=== PATIENT | female | born 1985 | race Caucasian/White ===

== ENCOUNTER 2017-03-16 08:36 | Inpatient (IN) | payer OTHER ==
[~2017-03-16] VITALS: Ht 154.9 cm; Wt 68.9 kg
[~2017-03-16 08:36] MED LIST: CLINDAMYCIN HY300 MG PO; KEFLEX500 MG PO; NORCO 325 MG-51 TAB PO; ZOVIRAX400 MG PO
[2017-03-16 09:34] LABS: ABSOLUTE BASOPHIL COUNT 0.1 /CUMM (0.0-0.2); ABSOLUTE EOSINOPHIL COUNT 0.1 /CUMM (0.0-0.7); ABSOLUTE GRANULOCYTE CT 8.2 /CUMM (1.4-6.5); ABSOLUTE LYMPH COUNT 1.5 /CUMM (1.2-3.4); ABSOLUTE MONOCYTE COUNT 0.6 /CUMM (0.10-0.60); BASOPHIL % 0.5 % (0.0-2.0); EOSINOPHIL % 1.1 % (0-5); HEMATOCRIT 37.3 % (37-47); MEAN CORPUSCULAR HGB 33.8 PG (27.0-31.0); MEAN CORPUSCULAR HGB CONC 34.3 G/DL (33.0-37.0); MEAN CORPUSCULAR VOLUME 98.4 FL (81.0-99.0); MEAN PLATELET VOLUME 10.4 FL (7.4-10.4); PLATELET COUNT 181 /CUMM (130-400); RED BLOOD CELL CT 3.79 /CUMM (4.20-5.40); WHITE BLOOD CELL COUNT 10.5 /CUMM (4.8-10.8)
[2017-03-16 09:35] LABS: GRANULOCYTE % 77.8 % (42.2-75.2)
--- NOTE | 2017-03-16 13:15 | PN- Obstetrical ---
Subjective Subjective: C/O PAIN Objective Last 24 Hrs of Vital Signs/I&O Intake & Output 03/16 1600 05/ 0800 05 0000 Intake Total Output Total Balance Patient 152 lb Weight Physical Exam: ABD SOFT [id number] Obstetric Exam Dilation (cm): 4 Effacement (%): 80 Station: 0 Membranes: AROM Fluid: clear Multiple Gestation? No Contractions: Q 2-3 MINUTES Assessment/Plan Assessment/Plan ASSESS TERM INDUCTION PLAN CONT PITOCIN
--- NOTE | 2017-03-16 15:50 | Labor & Delivery Summary ---
Delivery Summary Vaginal Delivery: Vaginal: vertex Episiotomy/Lacerations: Episiotomy/Lacerations: none Placenta: Placenta: spontanteous, normal, 3 vessel, nuchal cord (x_), CANX1 (REDUCIBLE) Anesthesia: block Baby's Weight: 5 5 Additional Comments: WITH MECONIUM NOTED AFTER DELIVERY ON TOWEL OVER INTACT PERINEUM
[2017-03-17] MEDS ORDERED: IBUPROFEN800 M1 PO (08:51)
--- NOTE | 2017-03-17 08:56 | PN- Post Delivery/GYN ---
Subjective Subjective: WANTS TO GO HOME Objective Last 24 Hrs of Vital Signs/I&O PER CHART Physical Exam: VSS ABD SOFT NT FUNDUS FIRM NT LOCHIA MINIMAL EXT -EDEMA -HOMAQNS Assessment/Plan Assessment/Plan ASSESS S/P PLAN CONT PPC
[2017-03-17 09:49] LABS: ABSOLUTE BASOPHIL COUNT 0 /CUMM (0.0-0.2); ABSOLUTE EOSINOPHIL COUNT 0.2 /CUMM (0.0-0.7); ABSOLUTE GRANULOCYTE CT 10.5 /CUMM (1.4-6.5); ABSOLUTE LYMPH COUNT 1.6 /CUMM (1.2-3.4); ABSOLUTE MONOCYTE COUNT 0.7 /CUMM (0.10-0.60); BASOPHIL % 0.1 % (0.0-2.0); EOSINOPHIL % 1.4 % (0-5); GRANULOCYTE % 80.9 % (42.2-75.2); HEMATOCRIT 36.6 % (37-47); MEAN CORPUSCULAR HGB 33.1 PG (27.0-31.0); MEAN CORPUSCULAR HGB CONC 32.9 G/DL (33.0-37.0); MEAN CORPUSCULAR VOLUME 100.6 FL (81.0-99.0); MEAN PLATELET VOLUME 10.4 FL (7.4-10.4); PLATELET COUNT 166 /CUMM (130-400); RBC DISTRIBUTION WIDTH 14.2 % (11.5-14.5); RED BLOOD CELL CT 3.64 /CUMM (4.20-5.40)
== END 2017-03-17 17:25 | DRG 560 ==
LOC: GNO 08:36
PROVIDERS: ADMIT Specialist
PROC: 10E0XZZ Delivery of Products of Conception, External Approach (ICD-10-PCS; principal; 2017-03-16)
PROC: 3E033VJ Introduction of Other Hormone into Peripheral Vein, Percutaneous Approach (ICD-10-PCS; 2017-03-16)
DX: O69.81X0 Labor and delivery complicated by cord around neck, without compression, not applicable or unspecified (principal); Z3A.39 39 weeks gestation of pregnancy; Z37.0 Single live birth
CPT/HCPCS: GNOS; 81003; 87086; 88307; J7120

== ENCOUNTER 2017-04-10 03:28 | Emergency (ER) | payer OTHER ==
[~2017-04-10 03:28] MED LIST changes: +IBUPROFEN800 M1 PO
--- NOTE | 2017-04-10 03:33 | ED GI/GU/ABDOMINAL COMPLAINT ---
History of Present Illness General Chief Complaint: Abdominal Pain/Flank Pain Stated Complaint: LEFT SIDED ABD PAIN, X 2 HRS Source: patient Exam Limitations: clinical condition Vital Signs & Intake/Output Vital Signs & Intake/Output Vital Signs Date Time Temp Pulse Resp B/P B/P Pulse O2 O2 Flow FiO2 Mean Ox Delivery Rate 04/10 0355 96.1 74 22 124/71 95 Room Air Allergies Coded Allergies: shellfish derived (Severe, HIVES 04/10/17) Reconcile Medications Tramadol HCl (Ultram) 50 MG TABLET 1 TAB PO Q12P PRN FLANK PAIN Triage Nurses Notes Reviewed? yes ? N Is pt currently ? No Onset: Abrupt Duration: hour(s): (1) Timing: single episode today Quality/Severity: sharpness, severe Location: left flank Radiation: no radiation Activities at Onset: rest No Modifying Factors: none Associated Symptoms: abdominal pain, nausea/vomiting HPI: 31 year old female presents with left flank pain that started abruptly before arrival. Positive vomiting in triage. Reports pain feels similar to previous kidney stone. She is status post vaginal delivery 3 weeks ago. Past History Travel History Traveled to [place] past 21 day No Medical History Any Pertinent Medical History? see below for history Renal: nephrolithiasis Surgical History Surgical History: non-contributory Psychosocial History What is your primary language Lithuanian Daily Tobacco Use Amount/Type: => 5 Cigarettes daily ETOH Use: denies use Illicit Drug Use: denies illicit drug use Family History Hx Contributory? No Review of Systems Review of Systems Constitutional: Denies: chills, fever. EENTM: Reports: no symptoms. Respiratory: Denies: cough, short of breath. Cardiovascular: Denies: chest pain, palpitations. GI: Reports: abdominal pain, nausea, vomiting. Genitourinary: Reports: no symptoms. Musculoskeletal: Reports: no symptoms. Skin: Reports: no symptoms. Neurological/Psychological: Reports: no symptoms. Hematologic/Endocrine: Denies: bruising, bleeding, polyuria, polydipsia. Immunologic/Allergic: Denies: splenectomy. All Other Systems: Reviewed and Negative Physical Exam Physical Exam General Appearance: well developed/nourished, alert, awake, anxious Head: atraumatic, normal appearance Eyes: Bilateral: normal appearance, PERRL, EOMI. Ears, Nose, Throat, Mouth: hearing grossly normal, moist mucous membrane Neck: normal inspection, supple, full range of motion Respiratory: normal breath sounds, chest non-tender, no respiratory distress Cardiovascular: regular rate/rhythm Peripheral Pulses: 2+ radial (R), 2+ radial (L) Gastrointestinal: normal bowel sounds, soft, tenderness (LEFT FLANK) Back: CVA tenderness (L) Extremities: normal range of motion Neurologic/Psych: no motor/sensory deficits, awake, alert, oriented x 3 Skin: intact, normal color Core Measures ACS in differential dx? No Severe Sepsis Present: No Septic Shock Present: No Progress Differential Diagnosis: ectopic , kidney stone, ovarian cyst, ovarian torsion, UTI/pyelo Plan of Care: Orders Procedure Date/time Status Straight Cath 04/10 440 Active LIPASE 04/10 336 Complete HUMAN BETA HCG SCREEN 04/10 336 Complete COMPREHENSIVE METABOLIC PANEL 04/10 336 Complete CBC WITHOUT DIFFERENTIAL 04/10 336 Complete URINALYSIS 04/10 331 Complete Laboratory Tests 04/10/17 0436: Urinalysis LIGHT H, Urine Color YEL, Urine Clarity CLDY H, Urine pH 7.5, Ur Specific [place] 1.015, Urine Protein 30 H, Urine Ketones NEG, Urine Nitrite NEG, Urine Bilirubin NEG, Urine Urobilinogen 1.0, Ur Leukocyte Esterase NEG, Ur Microscopic SEDIMENT EXAMINED, Urine RBC 15-25 H, Urine WBC 1-3 H, Ur Epithelial Cells RARE, Urine Mucus MANY H, Urine Hemoglobin LARGE H, Urine Glucose NEG 04/10/17 0342: Anion Gap 8, Estimated GFR > 60, BUN/Creatinine Ratio 21.7, Glucose 106 H, Calcium 8.7, Total Bilirubin 0.4, AST 21, ALT 35, Alkaline Phosphatase 90, Total Protein 6.3, Albumin 4.0, Globulin 2.3, Albumin/Globulin Ratio 1.7, Lipase 308 H, Total Beta HCG NEGATIVE, CBC w Diff NO MAN DIFF REQ, RBC 4.24, MCV 100.1 H, MCH 33.2 H, RDW 14.0, MPV 9.3, Gran % 64.0, Lymphocytes % 23.5, Monocytes % 6.4 , Eosinophils % 5.0, Basophils % 1.1, Absolute Granulocytes 6.6 H, Absolute Lymphocytes 2.4, Absolute Monocytes 0.7 H, Absolute Eosinophils 0.5, Absolute Basophils 0.1, PUBS MCHC 33.2 5:52 AM Patient much improved after IV Dilaudid. No initial relief with IV Toradol and morphine. Results of CT scan discussed with the patient and grandmother at bedside. Prescription sent to [facility] in [place]. (LES TOMLINSON,YURI) Diagnostic Imaging: Viewed by Me: CT Scan. Discussed w/RAD: CT Scan. Radiology Impression: PATIENT: OPAL IVERSON PRESENT AGE: 31 PATIENT ACCOUNT NO: [id number] : 85 LOCATION: [facility] ORDERING PHYSICIAN: YURI SALDANA MD SERVICE DATE: 04/10/17 EXAM TYPE: CAT - CT ABD & PELVIS W/O IV CONTRAS EXAMINATION: CT ABDOMEN AND PELVIS WITHOUT CONTRAST CLINICAL INFORMATION: Severe left flank pain and hematuria COMPARISON: 02/17/2012 TECHNIQUE: Multidetector volumetric imaging was performed from the superior aspect of the liver through the pubic symphysis. Sagittal and coronal reformatted images were obtained on the technologist's workstation. DLP: 265 mGy -cm FINDINGS: LUNG BASES: The visualized lung bases are unremarkable. LIVER, GALLBLADDER, AND BILIARY TREE: The liver is normal in size, shape, and attenuation. No focal hepatic lesion or biliary ductal dilatation is present. The gallbladder is unremarkable with no evidence of radiopaque gallstones, gallbladder wall thickening, or obvious pericholecystic inflammatory changes. PANCREAS: Unremarkable. SPLEEN: Unremarkable. ADRENAL GLANDS: Unremarkable. KIDNEYS AND URETERS: The kidneys are normal in size, shape, and attenuation. There is mild left hydroureteronephrosis. There is a 0.4 cm calculus at the left ureterovesicular junction. No additional calculi. No right-sided hydronephrosis. BLADDER: Unremarkable. GASTROINTESTINAL TRACT: The stomach and small bowel are unremarkable. No dilated loops of bowel or evidence of obstruction. No colonic wall thickening or inflammatory change. Normal appendix. ABDOMINAL WALL: No significant hernia is appreciated. LYMPH NODES: Normal. VASCULAR: Unremarkable. PELVIC VISCERA: The uterus and adnexa are unremarkable. OSSEOUS STRUCTURES: Unremarkable. IMPRESSION: Mild left hydroureteronephrosis with a 0.4 cm calculus at the ureterovesicular junction. DICTATED BY: NADIRA TOMLINSON,JAYCEE DATE/TIME DICTATED:04/10/17522 [employer]:OMAR DATE/TIME TRANSCRIBED:522 CONFIDENTIAL, DO NOT COPY WITHOUT APPROPRIATE AUTHORIZATION. < Electronically signed in Other Vendor System> SIGNED BY: NADIRA TOMLINSON, JAYCEE 04/10/17 0530 Initial ED EKG: none Departure Departure Time of Disposition: 0550 Disposition: HOME OR SELF CARE Condition: Stable Clinical Impression Primary Impression: Renal colic on left side Referrals: CHARLEY RASMUSSEN MD Additional Instructions: Take the Flomax, ibuprofen, Zofran and Percocet as directed. Please drink plenty of fluids. Follow-up with the urologist listed. Strain your urine as directed. Return as needed. Departure Forms: Customer Survey General Discharge Information Take the Flomax, ibuprofen, Zofran and Percocet as directed. Please drink plenty of fluids. Follow-up with the urologist listed. Strain your urine as directed. Return as needed. Departure Forms: Customer Survey General Discharge Information Prescriptions: Current Visit Scripts Ondansetron (Zofran Odt) 1 TAB PO Q6 PRN NAUSEA #10 TAB Ibuprofen 1 TAB PO TID PRN PAIN #20 TAB Tamsulosin HCl (Flomax) 1 CAP PO DAILY #14 CAP Oxycodone HCl/Acetaminophen (Percocet 5-325 MG Tablet) 1 TAB PO BID #12 TAB
[2017-04-10 03:55] LABS: MEAN CORPUSCULAR HGB 33.2 PG (27.0-31.0)
[2017-04-10 03:58] LABS: ABSOLUTE BASOPHIL COUNT 0.1 /CUMM (0.0-0.2); ABSOLUTE EOSINOPHIL COUNT 0.5 /CUMM (0.0-0.7); ABSOLUTE GRANULOCYTE CT 6.6 /CUMM (1.4-6.5); ABSOLUTE LYMPH COUNT 2.4 /CUMM (1.2-3.4); ABSOLUTE MONOCYTE COUNT 0.7 /CUMM (0.10-0.60); BASOPHIL % 1.1 % (0.0-2.0); HEMATOCRIT 42.4 % (37-47); MEAN CORPUSCULAR HGB CONC 33.2 G/DL (33.0-37.0); MEAN CORPUSCULAR VOLUME 100.1 FL (81.0-99.0); MEAN PLATELET VOLUME 9.3 FL (7.4-10.4); PLATELET COUNT 212 /CUMM (130-400); RED BLOOD CELL CT 4.24 /CUMM (4.20-5.40); WHITE BLOOD CELL COUNT 10.3 /CUMM (4.8-10.8)
--- NOTE | 2017-04-10 05:30 | CT SCAN REPORT ---
EXAMINATION: CT ABDOMEN AND PELVIS WITHOUT CONTRAST CLINICAL INFORMATION: Severe left flank pain and hematuria COMPARISON: 02/17/2012 TECHNIQUE: Multidetector volumetric imaging was performed from the superior aspect of the liver through the pubic symphysis. Sagittal and coronal reformatted images were obtained on the technologist's workstation. DLP: 265 mGy-cm FINDINGS: LUNG BASES: The visualized lung bases are unremarkable. LIVER, GALLBLADDER, AND BILIARY TREE: The liver is normal in size, shape, and attenuation. No focal hepatic lesion or biliary ductal dilatation is present. The gallbladder is unremarkable with no evidence of radiopaque gallstones, gallbladder wall thickening, or obvious pericholecystic inflammatory changes. PANCREAS: Unremarkable. SPLEEN: Unremarkable. ADRENAL GLANDS: Unremarkable. KIDNEYS AND URETERS: The kidneys are normal in size, shape, and attenuation. There is mild left hydroureteronephrosis. There is a 0.4 cm calculus at the left ureterovesicular junction. No additional calculi. No right-sided hydronephrosis. BLADDER: Unremarkable. GASTROINTESTINAL TRACT: The stomach and small bowel are unremarkable. No dilated loops of bowel or evidence of obstruction. No colonic wall thickening or inflammatory change. Normal appendix. ABDOMINAL WALL: No significant hernia is appreciated. LYMPH NODES: Normal. VASCULAR: Unremarkable. PELVIC VISCERA: The uterus and adnexa are unremarkable. OSSEOUS STRUCTURES: Unremarkable. IMPRESSION: Mild left hydroureteronephrosis with a 0.4 cm calculus at the ureterovesicular junction.
[2017-04-10] MEDS ORDERED: FLOMAX0.4 M1 PO (05:51)
[2017-04-10] MEDS ORDERED: ZOFRAN ODT4 M1 PO (05:51)
[2017-04-10] MEDS ORDERED: PERCOCET 5-3251 EACH PO (05:51)
[2017-04-10] MEDS ORDERED: IBUPROFEN800 M1 PO (05:51)
[2017-04-10 05:59] VITALS: BP 122/76
[2017-04-11] MEDS ORDERED: ULTRAM50 M1 PO (11:56)
== END 2017-04-10 06:00 ==
LOC: ERH 03:28
PROVIDERS: Emergency Medicine
DX: N23 Unspecified renal colic (principal)
CPT/HCPCS: 74176; 81001; 81025; 96361; 96374; 96375; J1885; J2405

== ENCOUNTER 2017-04-10 15:06 | Observation (INO) | payer OTHER ==
[~2017-04-10] VITALS: Ht 152.4 cm; Wt 59.0 kg
[~2017-04-10 15:06] MED LIST changes: +FLOMAX0.4 M1 PO; +PERCOCET 5-3251 EACH PO; +ZOFRAN ODT4 M1 PO
--- NOTE | 2017-04-10 15:14 | NUR ---
PT BIBA FROM HOME C/C L FLANK PAIN, DIAGNOSED WITH KIDNEY STONES LAST NIGHT, D/C'D FROM [facility] ED AT 03:00. TOOK OXYCODONE 13:00 WITH NO RELIEF NOTED. ALSO REPORTS A LITTLE BIT OF NAUSEA.
--- NOTE | 2017-04-10 15:14 | NUR ---
Informed waiting has been performed.
--- NOTE | 2017-04-10 15:30 | ED GI/GU/ABDOMINAL COMPLAINT ---
History of Present Illness General Chief Complaint: Abdominal Pain/Flank Pain Stated Complaint: BIBA FOR L FLANK PAIN, SEEN IN ED YEST FOR SAME Source: patient, old records, EMS Exam Limitations: no limitations Vital Signs & Intake/Output Vital Signs & Intake/Output Vital Signs Date Time Temp Pulse Resp B/P B/P Pulse O2 O2 Flow FiO2 Mean Ox Delivery Rate 04/10 1908 97.1 68 20 122/60 99 Room Air 04/10 1637 97.2 49 20 126/61 97 Room Air 04/10 1546 Room Air Room Air 04/10 1510 97.3 60 24 142/63 100 Room Air Allergies Coded Allergies: shellfish derived (Severe, HIVES 04/10/17) Reconcile Medications Acetaminophen/Hydrocodone Bi ([place] 325 MG-5 MG) 1 TAB TAB 1 TAB PO TID . Acyclovir (Zovirax) 400 MG TABLET 1 TAB PO 5XDAILY UNKNOWN (Reported) Ibuprofen 800 MG TABLET 1 TAB PO TID PRN PAIN Ibuprofen 800 MG TABLET 800 MG PO Q6P PRN UTERINE CRAMPING Ondansetron (Zofran Odt) 4 MG TAB.RAPDIS 1 TAB PO Q6 PRN NAUSEA Oxycodone HCl/Acetaminophen (Percocet 5-325 MG Tablet) 5 MG-325 MG TABLET 1 TAB PO BID BREAKTHROUGH PAIN Tamsulosin HCl (Flomax) 0.4 MG CAP.ER.24H 1 CAP PO DAILY KIDNEY STONE Triage Note: PT BIBA FROM HOME C/C L FLANK PAIN, DIAGNOSED WITH KIDNEY STONES LAST NIGHT, D/C'D FROM [facility] ED AT 03:00. TOOK OXYCODONE 13:00 WITH NO RELIEF NOTED. ALSO REPORTS A LITTLE BIT OF NAUSEA. Triage Nurses Notes Reviewed? yes LMP (ages 10-50): unknown ? n Is pt currently ? No Onset: Just prior to arrival Duration: hour(s):, constant, continues in ED Timing: recent history Quality/Severity: sharpness, severe Location: left flank Radiation: LLQ Activities at Onset: none Prior Abdominal Problems: similar symptoms Past Sexual History: Unobtainable at this time No Modifying Factors: none Associated Symptoms: abdominal pain, diaphoresis, loss of appetite, nausea/ vomiting HPI: Several hours prior to admission patient complains of recurrent flank pain described as sharp constant rating to left lower quadrant associated with nausea diagnosed with renal colic earlier in the day. She took oxycodone prior to admission with no relief. She denies fever chills diarrhea chest pain cough shortness of breath headache dysuria rash bleeding. Past History Travel History Traveled to [place] past 21 day No Medical History Any Pertinent Medical History? see below for history Neurological: NONE EENT: NONE Cardiovascular: NONE Respiratory: NONE Gastrointestinal: NONE Hepatic: NONE Renal: nephrolithiasis Musculoskeletal: NONE Psychiatric: NONE Endocrine: NONE Blood Disorders: NONE Cancer(s): NONE CABLE OPERATOR/Reproductive: NONE Surgical History Surgical History: non-contributory Psychosocial History What is your primary language Lithuanian Tobacco Use: Current Daily Use Daily Tobacco Use Amount/Type: => 5 Cigarettes daily ETOH Use: occasional use Illicit Drug Use: denies illicit drug use Family History Hx Contributory? No Review of Systems Review of Systems Constitutional: Reports: no symptoms. EENTM: Reports: no symptoms. Respiratory: Reports: no symptoms. Cardiovascular: Reports: no symptoms. GI: Reports: see HPI, nausea. Genitourinary: Reports: see HPI, pain. Musculoskeletal: Reports: no symptoms. Skin: Reports: no symptoms. Neurological/Psychological: Reports: no symptoms. Hematologic/Endocrine: Reports: no symptoms. Immunologic/Allergic: Reports: no symptoms. All Other Systems: Reviewed and Negative Physical Exam Physical Exam General Appearance: well developed/nourished, alert, awake, anxious, severe distress Head: atraumatic, normal appearance Eyes: Bilateral: normal appearance, PERRL, EOMI, normal inspection. Ears, Nose, Throat, Mouth: hearing grossly normal, moist mucous membrane Neck: normal inspection, supple, full range of motion, normal alignment, no midline tenderness Respiratory: normal breath sounds, chest non-tender, no respiratory distress, quiet respiration, lungs clear Cardiovascular: regular rate/rhythm, normal peripheral pulses, tachycardia, norml femoral pulses equa Peripheral Pulses: 4+ carotid (R), 4+ carotid (L) Gastrointestinal: normal bowel sounds, soft, non-tender, no organomegaly Back: normal inspection, normal range of motion Extremities: normal range of motion, no ligament instability Neurologic/Psych: no motor/sensory deficits, awake, alert, oriented x 3, normal gait, burr bench hand II-XII nml as tested Skin: intact, normal color, warm/dry Core Measures ACS in differential dx? No Severe Sepsis Present: No Septic Shock Present: No Progress Differential Diagnosis: kidney stone Plan of Care: Orders Procedure Date/time Status Regular Diet 04/11 B Active Patient Data 04/10 185 Active OXYGEN SETUP (GEN) 04/10 1847 Active Saline Lock 04/[address] in observation 04/10 1847 Active Vital Signs 04/10 1847 Active Activity/Ambulation 04/10 1847 Active Code Status 04/10 1847 Active COMPREHENSIVE METABOLIC PANEL 04/10 1521 Complete Current Medications Sig/Tavares Start time Last Medication Dose Stop Time Status Admin Sodium Chloride 1,000 ML BOLUS ONE 04/10 1830 AC 04/10 (Normal Saline 0.9%) 04/10 1929 190 Laboratory Tests 04/10/17 1528: Anion Gap 7, Estimated GFR > 60, BUN/Creatinine Ratio 14.3, Glucose 92, Calcium 8.8, Total Bilirubin 0.5, AST 21, ALT 36, Alkaline Phosphatase 85, Total Protein 6.3, Albumin 3.8, Globulin 2.5, Albumin/Globulin Ratio 1.5 Diagnostic Imaging: Viewed by Me: CT Scan. Discussed w/RAD: CT Scan. Radiology Impression: Mild left hydroureteronephrosis with a 0.4 cm calculus at the ureterovesicular junction. Initial ED EKG: none Departure Departure Time of Disposition: 1908 Disposition: STILL A PATIENT Condition: Stable Clinical Impression Primary Impression: Renal colic on left side Secondary Impressions: Intractable abdominal pain Referrals: PATIENT HAS NO PRIMARY CARE DR (PCP/Family) Departure Forms: Customer Survey General Discharge Information Observation Note Spoke With: TARIK TOMLINSON,PARESH Physician Advisor Notified: OSKAR NICHOLAS DO Place Patient In: Non-ED OBS Care Area Rationale for Observation: My rational for observation is as follows intractable pain, IVF, urology evaluation, IV analgesia, medication adjustment. Critical Care Note Critical Care Note Critical Care Time: 30-74 min (40)
--- NOTE | 2017-04-10 15:30 | NUR ---
PT EVALUATED BY DR ELIZALDE IV ACCESS ESTABLISHED, #20 RAC LABS DRAWN/SENT (SST, LAVENDAR AND BLUE TOP TUBES)
--- NOTE | 2017-04-10 15:44 | NUR ---
IVF N/S INFUSION INITIATED AND PATIENT MEDICATED WITH DILAUDID, FENTANYL AND TORADOL PER ORDERS.
--- NOTE | 2017-04-10 16:47 | NUR ---
PT STATES PAIN IMPROVED BUT RATES 6/10, REQUESTING ADDITIONAL PAIN MEDS. DR ELIZLADE AWARE OF SAME, INTO EVALUATE PATIENT. PT MEDICATED WITH ADDITIONAL 2MG IV DILAUDID PER ORDERS.
--- NOTE | 2017-04-10 16:58 | NUR ---
PT REQUESTING NO VISITORS AT THIS TIME
--- NOTE | 2017-04-10 17:35 | NUR ---
PT STATES PAIN HAD GONE AWAY BUT IS "CREEPING BACK UP AGAIN". DISCUSSED SAME WITH DR ELIZALDE 2ND LITER N/S INFUSION INITIATED AND PATIENT MEDICATED WITH OFIRMEV PER ORDERS.
--- NOTE | 2017-04-10 18:24 | NUR ---
PT COMPLAINS OF NAUSEA DISCUSSED SAME WITH DR ELIZALDE MEDICATED WITH ZOFRAN PER ORDERS PT AMBULATORY TO BATHROOM, STRAINER PROVIDED
--- NOTE | 2017-04-10 19:08 | NUR ---
PT CONTINUES TO COMPLAIN OF PAIN AND NAUSEA. MEDICATED WITH DILAUDID, REGLAN AND ADDITIONAL LITER OF N/S INFUSION INITIATED PER ORDERS.
--- NOTE | 2017-04-10 19:16 | NUR ---
REPORT TO STACEY ROMAN
--- NOTE | 2017-04-10 19:45 | NUR ---
PT ASSIGNED TO ROOM 224-2
--- NOTE | 2017-04-10 19:49 | NUR ---
PT RESTING ON STRETCHER, NO ACTIVE VOMITING, VOICING NO COMPLAINTS AT THIS TIME.
--- NOTE | 2017-04-10 20:06 | NUR ---
REPORT CALLED TO [facility] ON [facility], FLOOR IS READY FOR PT, TRANSPORT BOOKED.
[2017-04-10 20:25] VITALS: BP 102/60
--- NOTE | 2017-04-10 20:27 | History & Physical ---
FANG MOLINA 04/10/172026: General Information and HPI MD Statement: I have seen and personally examined OPAL JOSEPH and documented this H&P. The patient is a 31 year old F who presented with a patient stated chief complaint of []. Source of Information: patient Exam Limitations: no limitations History of Present Illness: Ms Joseph is a 31-year-old woman who was known to be in his usual state of health until 1 day ago. She has a past history of nephrolithiasis (dx 2011). She was brought to [facility] with a chief concern of pain in left side of back 1 day. As per the patient, she had an acute onset of back pain that started the night prior to the admission, which woke her up from sleep, pain left side of the back radiating into the groin, 10/10 in severity, improved slightly upon taking pain medications. Associated with nausea and vomiting. No fever, dysuria, hematuria , shaking chills or pedal edema. No cardiopulmonary symptoms. No lightheadedness or dizziness, or weakness in upper or lower extremities. She is 12 weeks . Reports decreased drinking fluids regularly. Occasional alcohol use, 5-pack-year smoking history. Allergies/Medications Allergies: Coded Allergies: shellfish derived (Severe, HIVES 04/10/17) Past History Travel History Traveled to [place] past 21 day No Medical History Neurological: NONE EENT: NONE Cardiovascular: NONE Respiratory: NONE Gastrointestinal: NONE Hepatic: NONE Renal: nephrolithiasis Musculoskeletal: NONE Psychiatric: NONE Endocrine: NONE Blood Disorders: NONE Cancer(s): NONE BAND TEACHER/Reproductive: NONE Isolation History: Standard Surgical History Surgical History: non-contributory Past Family/Social History Family History Relations & Conditions if any MOTHER (Nephrolithiasis). FATHER (head and neck cancer). Psychosocial History Smoking Status: Light Tobacco Smoker ETOH Use: occasional use Illicit Drug Use: denies illicit drug use Functional Ability ADLs Independent: dressing, eating, toileting, bathing. Ambulation: independent IADLs Independent: shopping, housework, finances, food prep, telephone, transportation , medication admin. Employment History Employment Employed Profession/Employer [employer] Review of Systems Review of Systems Constitutional: Denies: chills, fever. EENTM: Denies: blurred vision. Cardiovascular: Denies: chest pain, edema. Respiratory: Denies: short of breath. GI: Reports: abdominal pain, nausea, vomiting. Denies: melena. Genitourinary: Denies: dysuria, frequency, hematuria, nocturia, pain, urgency. Musculoskeletal: Reports: back pain. Neurological/Psychological: Denies: anxiety, headache. Hematologic/Endocrine: Denies: bruising, bleeding. Exam & Diagnostic Data Last 24 Hrs of Vital Signs/I&O Vital Signs Date Time Temp Pulse Resp B/P B/P Pulse O2 O2 Flow FiO2 Mean Ox Delivery Rate 04/10 2007 97.0 45 16 115/57 98 Room Air 04/10 1908 97.1 68 20 122/60 99 Room Air 04/10 1637 97.2 49 20 126/61 97 Room Air 04/10 1546 Room Air Room Air 04/10 1510 97.3 60 24 142/63 100 Room Air Intake & Output 04/10 1600 04 0800 06 0000 Intake Total 1000 Output Total Balance 1000 Intake, IV 1000 Patient 130 lb Weight Weight Reported by Patient Measurement Method Physical Exam General Appearance Alert, Oriented X3, Cooperative, No Acute Distress Skin No Rashes, No Breakdown, No Significant Lesion Skin Temp/Moisture Exam: Warm/Dry Sepsis Skin Exam (color): Normal for Ethnicity HEENT Atraumatic, PERRLA, EOMI, Mucous Membr. moist/pink Neck Supple, No JVD, No thryomegaly Lymphatic Cervical nl Cardiovascular Regular Rate, Normal S1, Normal S2, No Murmurs Lungs Normal Air Movement Abdomen Normal Bowel Sounds, Soft, No Hepatospenomegaly, tenderness left lower quadrant Neurological Normal Speech, Strength at 5/5 X4 Ext, Normal Tone, Sensation Intact, Cranial Nerves 3-12 NL Extremities No Clubbing, No Cyanosis, No Edema Vascular Pulses Symmetrical Sepsis Peripheral Pulse Location: Dorsalis Pedis Sepsis Peripheral Pulse Exam: Normal Body Front and Back (Adult) 1) tenderness Last 24 Hrs of Labs/Shahzad: Laboratory Tests 04/10/17 1528: Anion Gap 7, Estimated GFR > 60, BUN/Creatinine Ratio 14.3, Glucose 92, Calcium 8.8, Total Bilirubin 0.5, AST 21, ALT 36, Alkaline Phosphatase 85, Total Protein 6.3, Albumin 3.8, Globulin 2.5, Albumin/Globulin Ratio 1.5 Diagnostic Data Other Results CAT - CT ABD & PELVIS W/O IV CONTRAS Mild left hydroureteronephrosis with a 0.4 cm calculus at the ureterovesicular junction. Assessment/Plan Assessment: She is an young woman with a past history of previous nephrolithiasis is being evaluated for left flank pain 1 day likely because of nephrolithiasis. At the time of admission, temperature 97.3, pulse rate 60, respiration 24, blood pressure 142/63 (improved to 122/60), 99% on room air. Findings indicated WBC 10.3, hemoglobin 14.1, hematocrit 42.4 with macrocytosis MCV 100.1. Platelets normal. Electrolytes, renal function and liver function within normal limits. Urinalysis revealed protein 30, RBC 15-25, large hemoglobin (could be a contaminant). Radiological findings-CT abdomen revealed mild hydronephrosis on the left side with 0.4 cm calculus at ureteral vesicular junction. Previous ultrasound abdomen-kidney findings 2011 revealed right hydronephrosis. Differential diagnosis: #1 left-sided nephrolithiasis #2 hydronephrosis #3 gastroenteritis #4 pelvic inflammatory disease Below is the problem list and plan: #1 left-sided flank pain-aggressive pain management with opiates and NSAIDs as needed. IV fluids. Monitor the patient for the next 24 hours on general medicine floor. Stone analysis. If the patient does not improve in the next 24 hours, may request urology consult. #2 smoking-nicotine patch if needed. As Ranked By This Provider Problem List: 1. Intractable abdominal pain 2. Renal colic on left side 3. Flank pain Core Measures/Miscellaneous Acute Coronary Syndrome ACS Diagnosis: No Cerebrovascular Accident CVA/TIA Diagnosis: No Congestive Heart Failure CHF Diagnosis: No Venous Thromboembolism VTE Risk Factors: Acute medical illness No [facility] VTE prophylaxis d/t: No contraindications No VTE Pharm Prophylaxis d/t: No contraindications VTE Diagnosis: No VTE Type: NONE VTE Confirmed by (Test): NONE Severe Sepsis Severe Sepsis Present: No Septic Shock Septic Shock Present: No Miscellaneous Documentation Attending Case Discussed With: HAVEN MONTANEZ MDZuhair Primary Care Physician: PATIENT HAS NO PRIMARY CARE DR Patient sees these Specialists Dr. Lozano Level of Patient Care: General Medicine ALFREDO MILES 04/10/172033: Resident Review Statement Resident Statement: examined this patient, discussed with international organizer, agreed with international organizer, discussed with family, reviewed EMR data (avail), discussed with nursing , discussed with case mgmt, reviewed images, amended to note Other Findings: 31-year-old female with a past medical history of renal stones, presented to the ER with chief complaints of worsening left flank pain, nausea and vomiting after she was seen in the ER and was found to have a 0.4cm kidney in left ureter as per CT scan doen in ER last night. Of note she is status post delivery 3 weeks ago. According to the patient she was in her USOH until Sat night when she was feeding her baby, felt pain in left flank and asked her significant other to brin t o the ED. She was given IV morphine and dischrged on Percoet whihch didnt help her and so she returnd to the ED agian. Denies fever, chills, chest pain, palpitations, hematuria, burning micturition, shortness of breath, endorses nasuea, vomiting. Has a hx of renal sdtones in the past when she was with her 1st child. Never saw urologist or got evaluated for renal stones. She does endorse decreased intake of fluids. Vitals at the time of admission blood pressure 122/60, respiratory rate of 20, pulse 68, afebrile saturating 99% on room air. On physical exam she is alert and oriented x3,and in mild distress lyiing inbed. HEENT revelaed PERLLA, dry mucous membranes. Examination of neck revealed no LAD , no elevated JVP. Cardiovascular exam revealed normal S1, S2, no mumers, rubs, gallops. Respiratory exam benign with CTAB. Abdominal exam pertiennt for mild tenderness in left lower abdomen and positive for CVA tednerness on L side. Examination of lower extermities did not reveal any edema. Labs pertinent for sodium 138, potassium 3.7, bicarbonate 26, anion gap of 7, BUN 10 with a creatinine of 0.7. LFTs unremarkable with an AST/ALT of 21/36, alkaline phosphatase of 85, total bili of 0.5, serum calcium of 8.8. UA done yesterday was cloudy, positive for protein, 15-25 RBCs, 1-3 white blood cells, large amount of hemoglobin. ABC done yesterday revealed a normal white blood cell count of 10,300, and H&H of 14.1/42.4, elevated MCV of high or 0.1, normal platelet count of 212,000. CAT scan of the abdomen and pelvis done earlier this morning at 4 AM revealed mild left hydroureter ureter nephrosis, a 0.4 cm calculus at the left ureter ureterovesicular junction, no additional calculi nor right-sided hydronephrosis. In the ER she received IV Tylenol thousand milligrams 1, fentanyl 50 MCG IV 1, Dilaudid 2 mg IV 2, Toradol 30 mg IV 1, Reglan 10 mg IV 1, Zofran 4 mg IV 1 and 3 boluses of normal saline as mL stems 3. Assesment and Plan Place for obseravtion on [employer]. # L flank pain - 2/2 renal colic given 0.4cm stone at ureterovesical junction - Will hydrate with IVFs and have urine strained. - Pain management with IV opiods, NSAIDs - Zofran 4mg Q6 PRN - Flomax 0.4mg daily - Maintain I's and O's. - If symoptoms worsen and do not improve, would get Urology for intervention. - DVT prophylaxis - Heparin 5000 IU TID SC - Code Status - Full Code. TARIK TOMLINSON, [facility] 04/10/172037: Attending MD Review Statement Attending Statement Attending MD Statement: examined this patient, discuss w/resident/PA/SEAMLESS TUBE DRAWER, agreed w/resident/PA/SEAMLESS TUBE DRAWER, discussed with family Attending Assessment/Plan: 31 yo F smoker, with h/o nephrolithiasis (2011), seen in ER last night for left flank pain, nausea and vomiting, discharged home with Percocet/zofran/flomax, returns to ER today for worsening pain, vomiting and inability to keep anything down. She denies urinary symptoms or hematuria. Poor PO intake. VSS, except slightly bradycardic. Exam: dry mucous membranes, left CVA tenderness and left LLQ tenderness. Labs: WBC 11.5, macrocytosis, normal renal functions. UA cloudy, proteinuria, WBC 1-3, RBC 15-25, large Hb, negative for nitrite and LE. CT abd/pelvis: mild left hydroureteronephrosis with 0.4 cm calculus at ureterovesicular junctions. 1. Acute left sided renal colic. GM 23 Obs, adequate IV hydration, anti-emetics, pain management with IV morphine, add Flomax. Strain urine and send for micro testing. No need for antibiotics. Consider Urology consult if her symptoms do not improve, otherwise she can follow up as outpatient. Encourage adequate PO intake of fluids on discharge. DVT ppx Lovenox. Full code.
--- NOTE | 2017-04-10 22:46 | NUR ---
PATIENT ADMITTED TO FLOOR FROM ER AT 2024. PATIENT ALERT AND ORIENTED X 3. ORIENTED TO CALL LIGHT SYSTEM, STAFF AND ROOM. PATIENT'S MOTHER, MANUEL AT BEDSIDE. PATIENT C/O PAIN AT 9/10 TO LEFT ABDOMEN AND LEFT FLANK. IV FLUID STARTED ORDERED. CALL LIGHT WITHIN REACH.
[2017-04-10 23:10] LABS: ABSOLUTE BASOPHIL COUNT 0 /CUMM (0.0-0.2); ABSOLUTE EOSINOPHIL COUNT 0.2 /CUMM (0.0-0.7); ABSOLUTE GRANULOCYTE CT 8.9 /CUMM (1.4-6.5); ABSOLUTE LYMPH COUNT 1.7 /CUMM (1.2-3.4); ABSOLUTE MONOCYTE COUNT 0.7 /CUMM (0.10-0.60); BASOPHIL % 0.3 % (0.0-2.0); EOSINOPHIL % 1.3 % (0-5); GRANULOCYTE % 77.4 % (42.2-75.2); MEAN CORPUSCULAR HGB 32.7 PG (27.0-31.0); MEAN CORPUSCULAR HGB CONC 32.9 G/DL (33.0-37.0); MEAN CORPUSCULAR VOLUME 99.4 FL (81.0-99.0); MEAN PLATELET VOLUME 9.2 FL (7.4-10.4); PLATELET COUNT 182 /CUMM (130-400); RBC DISTRIBUTION WIDTH 13.4 % (11.5-14.5); RED BLOOD CELL CT 3.83 /CUMM (4.20-5.40); WHITE BLOOD CELL COUNT 11.5 /CUMM (4.8-10.8)
[2017-04-11 06:30] VITALS: BP 106/68
--- NOTE | 2017-04-11 08:06 | PN- Housestaff ---
Subjective Follow-up For: Left flank pain Nephrolithiasis Complaints: pain scale (0-10) Subjective: Patient was seen and examined this morning. She is alert awake and oriented to time place and person. No acute events happened overnight. She denies any left flank pain. Denies any suprapubic tenderness. Denies any frequency, urgency, dysuria. Denies any fever, chills. Denies nausea, vomiting, abdominal pain. She is willing to go home today. Vitals were stable this morning. Review of Systems Constitutional: Denies: chills, diaphoresis, fever, malaise. Objective Last 24 Hrs of Vital Signs/I&O Vital Signs Date Time Temp Pulse Resp B/P B/P Pulse O2 O2 Flow FiO2 Mean Ox Delivery Rate 04/11 0835 116/70 / 0630 98.2 60 18 106/68 98 Room Air / 2025 98.2 50 20 102/60 96 Room Air Room Air 04/10 2007 97.0 45 16 115/57 98 Room Air / 1908 97.1 68 20 122/60 99 Room Air / 1637 97.2 49 20 126/61 97 Room Air 06/04 1546 Room Air Room Air 06/04 1510 97.3 60 24 142/63 100 Room Air Intake & Output 06/05 1600 06/05 0800 06/05 0000 Intake Total 800 1680 Output Total 1250 Balance -450 1680 Intake, IV 800 1200 Intake, Oral 0 480 Number 0 Bowel Movements Output, Urine 1250 Patient 58.967 kg Weight Physical Exam General Appearance: Alert, Oriented X3, Cooperative, No Acute Distress Skin: No Rashes, No Breakdown HEENT: Atraumatic, PERRLA, EOMI, Mucous Membr. moist/pink Neck: Supple, No JVD Lymphatic: Axillary nl, Cervical nl Cardiovascular: Normal S1, Normal S2 Lungs: Normal Air Movement Abdomen: Normal Bowel Sounds, Soft, No Tenderness Extremities: No Clubbing, No Cyanosis, No Edema Vascular: Normal Pulses Current Medications: Current Medications Sig/Tavares Start time Last Medication Dose Route Stop Time Status Admin Acetaminophen 650 MG Q6P PRN 04/10 2030 DC PO Acetaminophen 0 .STK-MED ONE 04/10 1734 DC IV Acetaminophen 1,000 MG ONCE ONE 04/10 173 DC 04/10 IV 04/10 173 1735 Fentanyl Citrate 0 .STK-MED ONE 04/10 1539 DC .ROUTE Fentanyl Citrate 50 MCG ONCE ONE 04/10 1530 DC 06/04 IV 06/04 1531 1544 Heparin Sodium 5,000 UNIT Q8 04/10 2200 DCD 04/11 (Porcine) SC 0655 Hydromorphone HCl 2 MG Q4-6 PRN PRN 04/10 2030 DC IV Hydromorphone HCl 2 MG ONCE ONE 04/10 1900 DC / IV 04/10 1901 1907 Hydromorphone HCl 0 .STK-MED ONE 04/10 1857 DC .ROUTE Hydromorphone HCl 0 .STK-MED ONE 04/10 1642 DC .ROUTE Hydromorphone HCl 2 MG ONCE ONE 04/10 1630 DC 04/10 IV PUSH 04/10 1631 1644 Hydromorphone HCl 0 .STK-MED ONE 04/10 1540 DC .ROUTE Hydromorphone HCl 1 MG ONCE ONE 04/10 1530 DC / IV 06 1531 1543 Ibuprofen 600 MG Q4P PRN 04/10 2045 DCD PO Ketorolac 15 MG Q6P PRN 04/10 2030 DCD Tromethamine IV Ketorolac 0 .STK-MED ONE 04/10 1538 DC Tromethamine .ROUTE Ketorolac 30 MG ONCE ONE 04/10 1530 DC 0604 Tromethamine IV 04/10 1531 1544 Metoclopramide HCl 10 MG ONCE ONE 04/10 1900 DC / IV 04/10 1901 1908 Metoclopramide HCl 0 .STK-MED ONE 04/10 1859 DC .ROUTE Morphine Sulfate 2 MG Q4P PRN 04/10 2100 DCD IV Ondansetron HCl 4 MG Q6P PRN 04/10 2030 DCD IV Ondansetron HCl 4 MG ONCE ONE 04/10 1830 DC / IV 04/10 1831 1823 Ondansetron HCl 0 .STK-MED ONE 04/10 1823 DC .ROUTE Sodium Chloride 1,000 ML Q10H 04 2030 DCD 06/05 IV 06 0229 0700 Sodium Chloride 1,000 ML BOLUS ONE 04/10 1830 DC / IV 04/10 1929 1907 Sodium Chloride 1,000 ML BOLUS ONE 04/10 1730 DC 04/10 IV 04/10 1829 1734 Sodium Chloride 1,000 ML BOLUS ONE 04/10 1530 DC 04/10 IV 04/10 1629 1544 Tamsulosin HCl 0.4 MG DAILY 04/11 1000 DCD 04/11 PO 0835 Last 24 Hrs of Lab/Shahzad Results Last 24 Hrs of Labs/Mics: Laboratory Tests 04/11/17 0645: Urinalysis LIGHT H, Urine Color YEL, Urine Clarity HAZY H, Urine pH 6.0, Ur Specific Hope 1.015, Urine Protein TRACE H, Urine Ketones TRACE H, Urine Nitrite NEG, Urine Bilirubin NEG, Urine Urobilinogen 0.2, Ur Leukocyte Esterase MOD H, Ur Microscopic SEDIMENT EXAMINED, Urine RBC 1-3, Urine WBC 25-50 H, Ur Epithelial Cells PACKD H, Urine Bacteria FEW H, Urine Hemoglobin LARGE H, Urine Glucose NEG 04/11/17 0615: Anion Gap 5, Estimated GFR > 60, BUN/Creatinine Ratio 8.3, CBC w Diff NO MAN DIFF REQ, RBC 3.68 L, MCV 99.9 H, MCH 32.9 H, RDW 13.8, MPV 10.4, Gran % 60.7 , Lymphocytes % 28.7, Monocytes % 6.8, Eosinophils % 3.3, Basophils % 0.5, Absolute Granulocytes 4.5, Absolute Lymphocytes 2.1, Absolute Monocytes 0.5, Absolute Eosinophils 0.2, Absolute Basophils 0, PUBS MCHC 32.9 L 04/10/17 2258: CBC w Diff NO MAN DIFF REQ, RBC 3.83 L, MCV 99.4 H, MCH 32.7 H, RDW 13.4, MPV 9.2, Gran % 77.4 H, Lymphocytes % 14.8 L, Monocytes % 6.2, Eosinophils % 1.3, Basophils % 0.3, Absolute Granulocytes 8.9 H, Absolute Lymphocytes 1.7, Absolute Monocytes 0.7 H, Absolute Eosinophils 0.2, Absolute Basophils 0, PUBS MCHC 32.9 L 04/10/17 1528: Anion Gap 7, Estimated GFR > 60, BUN/Creatinine Ratio 14.3, Glucose 92, Calcium 8.8, Total Bilirubin 0.5, AST 21, ALT 36, Alkaline Phosphatase 85, Total Protein 6.3, Albumin 3.8, Globulin 2.5, Albumin/Globulin Ratio 1.5 Assessment/Plan Assessment: 31-year-old female with a past medical history of renal stones, presented to the ER with chief complaints of worsening left flank pain, nausea and vomiting after she was seen in the ER and was found to have a 0.4cm kidney in left ureter as per CT scan done in ER last night. Vitals at the time of admission blood pressure 122/60, respiratory rate of 20, pulse 68, afebrile saturating 99% on room air. Labs pertinent for sodium 138, potassium 3.7, bicarbonate 26, anion gap of 7, BUN 10 with a creatinine of 0.7. LFTs unremarkable with an AST/ALT of 21/36, alkaline phosphatase of 85, total bili of 0.5, serum calcium of 8.8. UA done yesterday was cloudy, positive for protein, 15-25 RBCs, 1-3 white blood cells, large amount of hemoglobin. CBC done yesterday revealed a normal white blood cell count of 10,300, and H&H of 14.1/42.4, elevated MCV of high or 0.1, normal platelet count of 212,000. CAT scan of the abdomen and pelvis done earlier this morning at 4 AM revealed mild left hydroureter ureter nephrosis, a 0.4 cm calculus at the left ureter ureterovesicular junction, no additional calculi nor right-sided hydronephrosis. In the ER she received IV Tylenol thousand milligrams 1, fentanyl 50 MCG IV 1, Dilaudid 2 mg IV 2, Toradol 30 mg IV 1, Reglan 10 mg IV 1, Zofran 4 mg IV 1 and 3 boluses of normal saline as mL stems 3. Assesment and Plan Place for obseravtion on Gen Med. # L flank pain - 2/2 renal colic given 0.4cm stone at ureterovesical junction - hydrateD with IVFs and have urine strained. - Pain management with IV opiods, NSAIDs - Zofran 4mg Q6 PRN - Flomax 0.4mg daily - Maintain I's and O's. -Discharge her to follow-up with primary care doctor and urologist, referral was provided Tramadol 50 mg as required was given for pain - DVT prophylaxis - Heparin 5000 IU TID SC - Code Status - Full Code. Problem List: 1. Flank pain 2. Renal colic on left side Pain Ratin Pain Location: LEFT FLANK Pain Goal: Remain pain free Pain Plan: TRAMADOL Tomorrow's Labs & Rationales: NONE
[2017-04-11 08:20] LABS: ABSOLUTE BASOPHIL COUNT 0 /CUMM (0.0-0.2); ABSOLUTE EOSINOPHIL COUNT 0.2 /CUMM (0.0-0.7); ABSOLUTE GRANULOCYTE CT 4.5 /CUMM (1.4-6.5); ABSOLUTE LYMPH COUNT 2.1 /CUMM (1.2-3.4); ABSOLUTE MONOCYTE COUNT 0.5 /CUMM (0.10-0.60); BASOPHIL % 0.5 % (0.0-2.0); EOSINOPHIL % 3.3 % (0-5); GRANULOCYTE % 60.7 % (42.2-75.2); HEMATOCRIT 36.7 % (37-47); MEAN CORPUSCULAR HGB 32.9 PG (27.0-31.0); MEAN CORPUSCULAR HGB CONC 32.9 G/DL (33.0-37.0); MEAN CORPUSCULAR VOLUME 99.9 FL (81.0-99.0); MEAN PLATELET VOLUME 10.4 FL (7.4-10.4); PLATELET COUNT 164 /CUMM (130-400); RBC DISTRIBUTION WIDTH 13.8 % (11.5-14.5); RED BLOOD CELL CT 3.68 /CUMM (4.20-5.40); WHITE BLOOD CELL COUNT 7.5 /CUMM (4.8-10.8)
[2017-04-11 08:35] VITALS: BP 116/70
[2017-04-11] MEDS ORDERED: ULTRAM50 M1 PO (11:56)
--- NOTE | 2017-04-11 11:59 | Patient Discharge Instructions ---
Discharge Instructions General Discharge Information You were seen/treated for: LEFT NEPHROLITHIASIS RENAL COLIC You had these procedures: NONE Special Instructions: PLEASE F/U PCP IN 1-2 WEEKS PLEASE F/U UROLOGIST IN 1 WEEK AFTER DISCHARGE Diet Continue normal diet: Yes Activity Full Activity/No Limits: Yes Acute Coronary Syndrome Inclusion Criteria At DC or during hospital stay patient has or had the following: ACS DIAGNOSIS No Discharge Core Measures Meds if any: Prescribed or Continued at Discharge Meds if any: NOT Prescribed or Continued at Discharge Congestive Heart Failure Inclusion Criteria At DC or during hospital stay patient has or had the following: CHF DIAGNOSIS No Discharge Core Measures Meds if any: Prescribed or Continued at Discharge Meds if any: NOT Prescribed or Continued at Discharge Cerebrovascular accident Inclusion Criteria At DC or during hospital stay patient has or had the following: CVA/TIA Diagnosis No Discharge Core Measures Meds if any: Prescribed or Continued at Discharge Meds if any: NOT Prescribed or Continued at Discharge Venous thromboembolism Inclusion Criteria VTE Diagnosis No VTE Type NONE VTE Confirmed by (Test) NONE Discharge Core Measures - Per Current guidelines, there needs to be overlap - treatment for the first 5 days of Warfarin therapy. - If discharged on Warfarin prior to 5 days of - overlap therapy, the patient will need to be - assessed for post discharge needs including - *Post discharge parental anticoagulation - *Warfarin and/or parental anticoagulation education - *Follow up date to check INR post discharge At least 5 days overlap therapy as Inpatient No Meds if any: Prescribed or Continued at Discharge Note: Overlap Therapy is Warfarin and Anticoagulant Meds if any: NOT Prescribed or Continued at Discharge
--- NOTE | 2017-04-11 12:04 | PN- Att Addend ---
Attending Addendum Attending Brief Note Patient seen and examined, feeling overall better. The renal colic has resolved. Currently patient has no pain. She was started on IV fluids. Vital Signs Date Time Temp Pulse Resp B/P B/P Pulse O2 O2 Flow FiO2 Mean Ox Delivery Rate 04/11 0835 116/70 04/11 0630 98.2 60 18 106/68 98 Room Air 06/ 2025 98.2 50 20 102/60 96 Room Air Room Air 04/10 2007 97.0 45 16 115/57 98 Room Air 06/ 1908 97.1 68 20 122/60 99 Room Air 06/04 1637 97.2 49 20 126/61 97 Room Air / 1546 Room Air Room Air 06/ 1510 97.3 60 24 142/63 100 Room Air on exam; aox3, nad. cv; s1,s2, rrr resp; clear abd; soft, nt, bs+, no cva tenderness ext; no edema Laboratory Tests 04/11 04/11 0645 0615 Chemistry Sodium (137 - 145 mmol/L) 139 Potassium (3.5 - 5.1 mmol/L) 3.7 Chloride (98 - 107 mmol/L) 111 H Carbon Dioxide (22 - 30 mmol/L) 23 Anion Gap (5 - 16) 5 BUN (7 - 17 mg/dL) 5 L Creatinine (0.5 - 1.0 mg/dL) 0.6 Estimated GFR (>60 ml/min) > 60 BUN/Creatinine Ratio (7 - 25 %) 8.3 Hematology CBC w Diff NO MAN DIFF REQ WBC (4.8 - 10.8 /CUMM) 7.5 RBC (4.20 - 5.40 /CUMM) 3.68 L Hgb (12.0 - 16.0 G/DL) 12.1 Hct (37 - 47 %) 36.7 L MCV (81.0 - 99.0 FL) 99.9 H MCH (27.0 - 31.0 PG) 32.9 H RDW (11.5 - 14.5 %) 13.8 Plt Count (130 - 400 /CUMM) 164 MPV (7.4 - 10.4 FL) 10.4 Gran % (42.2 - 75.2 %) 60.7 Lymphocytes % (20.5 - 51.1 %) 28.7 Monocytes % (1.7 - 9.3 %) 6.8 Eosinophils % (0 - 5 %) 3.3 Basophils % (0.0 - 2.0 %) 0.5 Absolute Granulocytes (1.4 - 6.5 /CUMM) 4.5 Absolute Lymphocytes (1.2 - 3.4 /CUMM) 2.1 Absolute Monocytes (0.10 - 0.60 /CUMM) 0.5 Absolute Eosinophils (0.0 - 0.7 /CUMM) 0.2 Absolute Basophils (0.0 - 0.2 /CUMM) 0 PUBS MCHC (33.0 - 37.0 G/DL) 32.9 L Urines Urinalysis LIGHT H Urine Color (YEL,AMB,STR) YEL Urine Clarity (CLEAR) HAZY H Urine pH (5.0 - 8.0) 6.0 Ur Specific [place] (1.001 - 1.035) 1.015 Urine Protein (NEG,<30 MG/DL) TRACE H Urine Ketones (NEG) TRACE H Urine Nitrite (NEG) NEG Urine Bilirubin (NEG) NEG Urine Urobilinogen (0.1 - 1.0 EU/dl) 0.2 Ur Leukocyte Esterase (NEG) MOD H Ur Microscopic SEDIMENT EXAMINED Urine RBC (0 - 5 /HPF) 1-3 Urine WBC (0 - 2 /HPF) 25-50 H Ur Epithelial Cells (NONE,FEW) PACKD H Urine Bacteria (NEG/NONE) FEW H Urine Hemoglobin (NEG) LARGE H Urine Glucose (N MG/DL) NEG 04/10 04/10 2258 1528 Chemistry Sodium (137 - 145 mmol/L) 138 Potassium (3.5 - 5.1 mmol/L) 3.7 Chloride (98 - 107 mmol/L) 105 Carbon Dioxide (22 - 30 mmol/L) 26 Anion Gap (5 - 16) 7 BUN (7 - 17 mg/dL) 10 Creatinine (0.5 - 1.0 mg/dL) 0.7 Estimated GFR (>60 ml/min) > 60 BUN/Creatinine Ratio (7 - 25 %) 14.3 Glucose (65 - 99 mg/dL) 92 Calcium (8.4 - 10.2 mg/dL) 8.8 Total Bilirubin (0.2 - 1.3 mg/dL) 0.5 AST (14 - 36 U/L) 21 ALT (9 - 52 U/L) 36 Alkaline Phosphatase (<127 U/L) 85 Total Protein (6.3 - 8.2 g/dL) 6.3 Albumin (3.5 - 5.0 g/dL) 3.8 Globulin (1.9 - 4.2 gm/dL) 2.5 Albumin/Globulin Ratio (1.1 - 2.2 %) 1.5 Hematology CBC w Diff NO MAN DIFF REQ WBC (4.8 - 10.8 /CUMM) 11.5 H RBC (4.20 - 5.40 /CUMM) 3.83 L Hgb (12.0 - 16.0 G/DL) 12.5 Hct (37 - 47 %) 38.0 MCV (81.0 - 99.0 FL) 99.4 H MCH (27.0 - 31.0 PG) 32.7 H RDW (11.5 - 14.5 %) 13.4 Plt Count (130 - 400 /CUMM) 182 MPV (7.4 - 10.4 FL) 9.2 Gran % (42.2 - 75.2 %) 77.4 H Lymphocytes % (20.5 - 51.1 %) 14.8 L Monocytes % (1.7 - 9.3 %) 6.2 Eosinophils % (0 - 5 %) 1.3 Basophils % (0.0 - 2.0 %) 0.3 Absolute Granulocytes (1.4 - 6.5 /CUMM) 8.9 H Absolute Lymphocytes (1.2 - 3.4 /CUMM) 1.7 Absolute Monocytes (0.10 - 0.60 /CUMM) 0.7 H Absolute Eosinophils (0.0 - 0.7 /CUMM) 0.2 Absolute Basophils (0.0 - 0.2 /CUMM) 0 PUBS MCHC (33.0 - 37.0 G/DL) 32.9 L A/P; 31 y/o F with pmh sig for nephrolithiasis, is placed on gen med OBS with left renal colic, found to have Mild left hydroureteronephrosis with a 0.4 cm calculus at the ureterovesicular junction. Symptoms have resolved after IV hydration. Patient is now pain-free. She wants to go home when she is medically stable. Her UA looks dirty but she has not epithelial cells. She has been watched off of antibiotics. Patient to follow-up with urology as an outpatient. She will be given few pills supply of Tramadol in case she has recurrent pain.
--- NOTE | 2017-04-11 13:40 | Discharge Summary ---
Visit Information Visit Dates Admission Date: 04/10/17 Discharge Date: 04/11/17 Hospital Course Course Attending Physician: PARESH MONTANEZ MD Primary Care Physician: PATIENT HAS NO PRIMARY CARE DR Hospital Course: 31-year-old female with a past medical history of renal stones, presented to the ER with chief complaints of worsening left flank pain, nausea and vomiting and was found to have a 0.4cm kidney in left ureter as per CT scan done in ER . Vitals at the time of admission blood pressure 122/60, respiratory rate of 20, pulse 68, afebrile saturating 99% on room air. Labs pertinent for sodium 138, potassium 3.7, bicarbonate 26, anion gap of 7, BUN 10 with a creatinine of 0.7. LFTs unremarkable with an AST/ALT of 21/36, alkaline phosphatase of 85, total bili of 0.5, serum calcium of 8.8. UA was cloudy, positive for protein, 15-25 RBCs, 1-3 white blood cells, large amount of hemoglobin. CBC yesterday revealed a normal white blood cell count of 10,300, and H&H of 14.1/42.4, elevated MCV of high or 0.1, normal platelet count of 212,000. CAT scan of the abdomen and pelvis revealed mild left hydroureter ureter nephrosis, a 0.4 cm calculus at the left ureter ureterovesicular junction, no additional calculi nor right-sided hydronephrosis. In the ER she received IV Tylenol thousand milligrams 1, fentanyl 50 MCG IV 1, Dilaudid 2 mg IV 2, Toradol 30 mg IV 1, Reglan 10 mg IV 1, Zofran 4 mg IV 1 and 3 boluses of normal saline. Place for obseravtion on [facility]. # L flank pain/nephrolithiasis/left hydroureteronephrosis she had an acute onset of back pain that started the night prior to the admission, which woke her up from sleep, pain left side of the back radiating into the groin, 10/10 in severity, improved slightly upon taking pain medications. Associated with nausea and vomiting. No fever, dysuria, hematuria , shaking chills or pedal edema. She is 12 weeks . Reported decreased drinking fluids regularly. Occasional alcohol use, 5-pack-year smoking history. She was observed in the general medicine floor for 24 hours. She was treated for renal colic- Given 0.4 cm stone at ureterovesical junction. She was hydrated with IV fluids. She received IV opiates, and NSAIDS for pain management. Received ondansetron as required for nausea. Received Flomax 0.4 mg twice. She improved after receiving IV fluids and IV pain medications. She was discharged with the instructions to follow-up with primary care physician in one week and follow-up with the urologist within 1 week after discharge. Patient agreed for the plan. She was given tramadol 50 mg 8 tablets as required for renal colic pain. - DVT prophylaxis - Heparin 5000 IU TID SC - Code Status - Full Code. Complications: none Allergies: Coded Allergies: shellfish derived (Severe, HIVES 04/10/17) Significant Procedures: none Pertinent Lab Results: Abdomen, pelvis CT LUNG BASES: The visualized lung bases are unremarkable. LIVER, GALLBLADDER, AND BILIARY TREE: The liver is normal in size, shape, and attenuation. No focal hepatic lesion or biliary ductal dilatation is present. The gallbladder is unremarkable with no evidence of radiopaque gallstones, gallbladder wall thickening, or obvious pericholecystic inflammatory changes. PANCREAS: Unremarkable. SPLEEN: Unremarkable. ADRENAL GLANDS: Unremarkable. KIDNEYS AND URETERS: The kidneys are normal in size, shape, and attenuation. There is mild left hydroureteronephrosis. There is a 0.4 cm calculus at the left ureterovesicular junction. No additional calculi. No right-sided hydronephrosis. BLADDER: Unremarkable. GASTROINTESTINAL TRACT: The stomach and small bowel are unremarkable. No dilated loops of bowel or evidence of obstruction. No colonic wall thickening or inflammatory change. Normal appendix. ABDOMINAL WALL: No significant hernia is appreciated. LYMPH NODES: Normal. VASCULAR: Unremarkable. PELVIC VISCERA: The uterus and adnexa are unremarkable. OSSEOUS STRUCTURES: Unremarkable. IMPRESSION: Mild left hydroureteronephrosis with a 0.4 cm calculus at the ureterovesicular junction. Disposition Summary Disposition Principal Diagnosis: Nephrolithiasis Additional Diagnosis: Left hydroureteronephrosis Discharge Disposition: home or self care Discharge Instructions General Discharge Information Code Status: Full Code Patient's Diet: As tolerated Patient's Activity: As tolerated Follow-Up Instructions/Appts: Please follow-up primary care doctor in 1-2 weeks Please follow up urologist in 1-2 weeks Medications at Discharge Discharge Medications: Start taking the following new medications: Tramadol HCl (Ultram) 50 MG TABLET 1 Tablet ORAL Every 12 hours as needed as needed for FLANK PAIN Qty = 8 No Refills Copies To: SARAHI TOMLINSON,MARIE Attending MD Review Statement Documenting Attending: CHARLEY RASMUSSEN MD
== END 2017-04-11 12:50 ==
LOC: ERH 15:06 → ERHI 18:47 → 2NA 18:47 → ENRESERV 19:41 → ENTRNSPT 20:06 → 2NA 20:18 → CMPTRNSPT 22:37 → ENPENDDIS 04-11 12:20 → 2NA 04-11 12:50
PROVIDERS: Internal Medicine Infectious Disease; ADMIT Student in an Organized Health Care Education/Training Program
DX: N13.2 Hydronephrosis with renal and ureteral calculous obstruction (principal); R11.2 Nausea with vomiting, unspecified; F17.200 Nicotine dependence, unspecified, uncomplicated
CPT/HCPCS: 6030; 36415; 81001; 82436; 96361; 96365; 96375; 96376; 99291; G0378; J0131; J1644; J1885; J2405; J2765